=== PATIENT | female | born 1960 | race Caucasian/White ===

== ENCOUNTER → 2017-02-01 | Outpatient (CLI) | payer SELFPAY ==
[2017-02-01 16:33] LABS: BASO # 0.1 (0.02-0.10); EOS # 0.1 (0.04-0.40); EOS % 1.7 % (1.0-5.0); HEMATOCRIT 43.8 % (37.0-47.0); HEMOGLOBIN 14.7 g/dL (12.5-16.0); LYMPH# 1.9 (1.50-4.00); MEAN CELL VOLUME 92 fl (78-100); MEAN CORPUSCULAR HEMOGLOBIN 31 pg (27-31); MEAN CORPUSCULAR HGB CONC 34 g/dL (33-37); MONO # 0.6 (0.20-0.80); NEU # 3.3 (1.40-6.50); PLATELET COUNT 288 K/mm3 (130-400); RED BLOOD COUNT 4.74 M/mm3 (4.10-5.30); RED CELL DISTRIBUTION WIDTH 13.6 % (11.5-14.5); WHITE BLOOD COUNT 5.9 K/mm3 (4.8-10.8)
[2017-02-01 17:12] LABS: ALBUMIN 4.3 g/dL (3.5-5.0); BUN/CREATININE RATIO 16.3 (6.0-26.0); POTASSIUM 4.3 mmol/L (3.6-5.0); TOTAL BILIRUBIN 0.5 mg/dL (0.2-1.3); TOTAL PROTEIN 7.5 g/dL (6.3-8.2)
[2017-02-01 20:01] LABS: ERYTHROCYTE SEDIMENTATION RATE 3 mm/hr (0-30)
== END ==
LOC: LAB 15:40
PROVIDERS: Internal Medicine
DX: R53.83 Other fatigue (principal); I95.1 Orthostatic hypotension

== ENCOUNTER → 2017-02-17 | Outpatient (CLI) | payer SELFPAY | LOC: LAB 08:33 | DX: E34.0 Carcinoid syndrome (principal) ==

== ENCOUNTER → 2017-06-24 | Outpatient (CLI) | payer SELFPAY ==
[~2017-06-24] VITALS: Ht 160 cm; Wt 62.7 kg
[~2017-06-24] MED LIST: OMEGA-31000 M1 PO; VITAMIN D10000 UNIT PO
[2017-06-24 11:13] VITALS: BP 130/68
[2017-06-24 11:55] VITALS: BP 130/68
[2017-06-24 12:48] VITALS: BP 120/66
== END ==
LOC: AMSURD 10:46
DX: R53.1 Weakness (principal); R51 Headache; R42 Dizziness and giddiness
CPT/HCPCS: J0834

== ENCOUNTER → 2017-06-29 | Outpatient (CLI) | payer SELFPAY ==
[2017-06-24 12:48] VITALS: BP 120/66
[2017-06-29 23:42] LABS: CORTISOL, AM (0800) 14 ug/dL (3-20)
[2017-07-01 15:01] LABS: ADRENOCORTICOTROPIC HORMONE 36 pg/mL (())
== END ==
LOC: AMSURD 08:08 → LAB 08:08
PROVIDERS: Internal Medicine
DX: R53.1 Weakness (principal); R51 Headache; R42 Dizziness and giddiness

== ENCOUNTER 2018-01-23 16:09 | Emergency (ER) | payer SELFPAY ==
[2018-01-23] MEDS ORDERED: VENLAFAXINE H37.5 M4 PO (16:45)
[2018-01-23] MEDS ORDERED: MELOXICAM7.5 MG PO (16:46)
[2018-01-23 17:17] LABS: ALBUMIN 4.1 g/dL (3.5-5.0); ALT/SGPT 44 U/L (9-52); AST-SGOT 26 U/L (14-36); CALCIUM 9.7 mg/dL (8.4-10.2); CARBON DIOXIDE 28 mmol/L (22-30); GLUCOSE 86 mg/dL (65-105); POTASSIUM 4.1 mmol/L (3.6-5.0); SODIUM 139 mmol/L (137-145); TOTAL BILIRUBIN 0.8 mg/dL (0.2-1.3); TOTAL PROTEIN 6.9 g/dL (6.3-8.2)
[2018-01-23 17:18] LABS: BASO # 0.1 (0.02-0.10); EOS # 0.2 (0.04-0.40); EOS % 2.4 % (1.0-5.0); HEMATOCRIT 45.5 % (37.0-47.0); HEMOGLOBIN 15.7 g/dL (12.5-16.0); LYMPH# 1.9 (1.50-4.00); MEAN CELL VOLUME 91 fl (78-100); MEAN CORPUSCULAR HEMOGLOBIN 31 pg (27-31); MEAN CORPUSCULAR HGB CONC 35 g/dL (33-37); MEAN PLATELET VOLUME 8.7 fl (7.4-10.4); MONO # 0.6 (0.20-0.80); NEU # 3.8 (1.40-6.50); PLATELET COUNT 267 K/mm3 (130-400); RED BLOOD COUNT 5.01 M/mm3 (4.10-5.30); RED CELL DISTRIBUTION WIDTH 13.2 % (11.5-14.5); WHITE BLOOD COUNT 6.6 K/mm3 (4.8-10.8)
[2018-01-23 17:23] LABS: ALCOHOL IN-HOUSE < 10 mg/dL
[2018-01-23 17:47] LABS: URINE APPEARANCE CLEAR; URINE BILIRUBIN NEGATIVE (NEGATIVE); URINE BLOOD NEGATIVE (NEGATIVE); URINE COLOR YELLOW; URINE GLUCOSE NEGATIVE (NEGATIVE); URINE KETONE 1+ (NEGATIVE); URINE LEUKOCYTE ESTERASE NEGATIVE (NEGATIVE); URINE NITRATE NEGATIVE (NEGATIVE); URINE PROTEIN(semi-quant) NEGATIVE (NEGATIVE); URINE UROBILINOGEN NORMAL (NORMAL)
[2018-01-23 17:48] LABS: URINE MUCUS PRESENT (NOT PRESENT)
[2018-01-23] MEDS ORDERED: ZOFRAN4 M2 PO (18:32)
[2018-01-23 18:44] VITALS: BP 141/68
== END 2018-01-23 18:44 | disposition home or self-care (01) ==
LOC: ED 16:09
PROVIDERS: Nurse Practitioner
DX: R51 Headache (principal); I10 Essential (primary) hypertension; R53.83 Other fatigue; R11.0 Nausea; K21.9 Gastro-esophageal reflux disease without esophagitis
CPT/HCPCS: J2405; J7030

== ENCOUNTER → 2021-07-31 | Outpatient (CLI) | payer SELFPAY ==
[~2021-07-31] MED LIST changes: +MELOXICAM7.5 MG PO; +VENLAFAXINE H37.5 M4 PO; +ZOFRAN4 M2 PO
[2021-07-31 16:56] LABS: BASO # 0.08 K/mm3 (0.02-0.10); EOS # 0.17 K/mm3 (0.04-0.40); EOS % 2.5 % (1.0-5.0); HEMOGLOBIN 15.3 g/dL (12.5-16.0); LYMPH# 2.19 K/mm3 (1.50-4.00); MEAN CELL VOLUME 94 fl (78-100); MEAN CORPUSCULAR HEMOGLOBIN 31 pg (27-31); MEAN CORPUSCULAR HGB CONC 33 g/dL (33-37); MEAN PLATELET VOLUME 8.5 fl (7.4-10.4); MONO # 0.57 K/mm3 (0.20-0.80); NEU # 3.72 K/mm3 (1.40-6.50); PLATELET COUNT 275 K/mm3 (130-400); RED CELL DISTRIBUTION WIDTH 12.8 % (11.5-14.5); WHITE BLOOD COUNT 6.7 K/mm3 (4.8-10.8)
[2021-07-31 17:00] LABS: ALBUMIN 4.4 g/dL (3.5-5.0); POTASSIUM 4.2 mmol/L (3.5-5.1)
[2021-07-31 17:01] LABS: CALCIUM 9.5 mg/dL (8.3-10.5)
[2021-07-31 17:03] LABS: TOTAL PROTEIN 7.5 g/dL (6.4-8.3)
[2021-07-31 17:05] LABS: TOTAL BILIRUBIN 0.2 mg/dL (0.2-1.2)
== END ==
LOC: LAB 16:30
PROVIDERS: Internal Medicine
DX: Z00.00 Encounter for general adult medical examination without abnormal findings (principal); K90.9 Intestinal malabsorption, unspecified; E55.9 Vitamin D deficiency, unspecified; G43.109 Migraine with aura, not intractable, without status migrainosus

== ENCOUNTER → 2024-07-19 | Outpatient (CLI) | payer SELFPAY | LOC: MAMMO 14:18 | DX: Z12.31 Encounter for screening mammogram for malignant neoplasm of breast (principal) ==